=== PATIENT | female | born 1960 | race Caucasian/White ===

== ENCOUNTER 2018-12-20 14:35 | Emergency (ER) | payer MEDICARE ==
[~2018-12-20] VITALS: Ht 165.1 cm; Wt 61.7 kg
--- OUTSIDE RECORDS SUMMARY | ~2018-12-20 | XMS | Clinical Summary ---
Demographics + + + | Address | [address] | | | [place] [address] | + + + | Home Phone | | + + + | Preferred Language | Unknown | + + + | Marital Status | | + + + | Mandaeism Affiliation | 1073 | + + + | Race | Unknown | + + + | Ethnic Group | Unknown | + + + Author + + + | Author | [facility] | | | and [place] | + + + | Organization | [facility] | | | and [place] | + + + | Address | Unknown | + + + | Phone | Unavailable | + + + Support + + +---------+ + | Name | Relationship | Address | Phone | + + +---------+ + | RAFIA JORGENSEN ECON | Unknown | | + + +---------+ + Care Team Providers + +------+ + | Care Video Game Creator Name | Role | Phone | + +------+ + PCP | Unavailable | + +------+ + Allergies Not on File Medications Not on file Active Problems Not on file Social History + +-------+ +--------+------+ | Tobacco Use | Types | Packs/Day | Years | Date | | | | | Used | | + +-------+ +--------+------+ | Never Assessed | | | | | + +-------+ +--------+------+ + + + | Sex Assigned at | Date Recorded | | | | + + + | Not on file | | + + + + + + + | Job Start Date | Occupation | Industry | + + + + | Not on file | Not on file | Not on file | + + + + + + + + | Travel History | Travel Start | Travel End | + + + + + + | No recent travel history available. | + + Last Filed Vital Signs Not on file Plan of Treatment + + + + + | Health Maintenance | Due Date | Last Done | Comments | + + + + + | Vaccine: | | | | | Dtap/Tdap/Td (1 - | 8 | | | | Tdap) | | | | + + + + + | Cervical Cancer | | | | | Screening (Pap) | 9 | | | + + + + + | Vaccine: Zoster (1 | | | | | of 2) | 9 | | | + + + + + | Breast Cancer | | | | | Screening | 4 | | | + + + + + | Vaccine: Influenza | | | | | (#1) | 9 | | | + + + + + Results Not on filefrom Last 3 Months"
--- OUTSIDE RECORDS SUMMARY | ~2018-12-20 | XMS | Clinical Summary ---
Demographics + + + | Address | [address] | | | [place] [address] | + + + | Home Phone | | + + + | Preferred Language | Unknown | + + + | Marital Status | | + + + | Amish Affiliation | 1073 | + + + | Race | Unknown | + + + | Ethnic Group | Unknown | + + + Author + + + | Author | [facility] | | | and [place] | + + + | Organization | [facility] | | | and [place] [...] Team Providers + +------+ + | Care Laborer Ammunition Assembly Name | Role | Phone | + [...]
[~2018-12-20 14:35] MED LIST: CEPHALEXIN500 MG PO; KEFLEX500 MG PO; MACROBID 100 M100 MG PO; NORCO 5-325 TA1 EACH PO
--- OUTSIDE RECORDS SUMMARY | 2018-12-20 14:38 | XMS ---
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 Sammi has no Care Guidelines for this patient. Farooq VISIT COUNT (12 MO.) 2 [facility] TOTAL 2 NOTE: Visits indicate total known visits. ED/UCC VISIT TRACKING (12 MO.) 12/20/2018 14:35 [facility] [place] TYPE: Emergency COMPLAINT: - TOOTH/JAW PAIN 11/18/2018 00:[address] [facility] [place] TYPE: Emergency COMPLAINT: - DENTAL PROBLEM DIAGNOSES: - Nicotine dependence, unspecified, uncomplicated - Other specified disorders of teeth and supporting structures INPATIENT VISIT TRACKING (12 MO.) No inpatient visits to display in this time frame [id number]
[2018-12-20] MEDS ORDERED: PENICILLIN V P500 MG PO (15:18)
== END 2018-12-20 15:27 | disposition home or self-care (01) ==
LOC: ED 14:35
DX: K08.89 Other specified disorders of teeth and supporting structures (principal); F17.200 Nicotine dependence, unspecified, uncomplicated
CPT/HCPCS: 99282

== ENCOUNTER 2018-12-22 11:50 | Emergency (ER) | payer MEDICARE ==
[~2018-12-22] VITALS: Ht 165.1 cm; Wt 61.2 kg
--- OUTSIDE RECORDS SUMMARY | ~2018-12-22 | XMS | Clinical Summary ---
Demographics + + + | Address | [address] | | | [place] [address] | + + + | Home Phone | | + + + | Preferred Language | Unknown | + + + | Marital Status | | + + + | Jain Affiliation | 1073 | + + + | Race | Unknown | + + + | Ethnic Group | Unknown | + + + Author + + + | Author | [facility] | | | and [place] | + + + | Organization | [facility] | | | and [place] | [...] Team Providers + +------+ + | Care Production Line Assembler Name | Role | Phone | + [...]
--- OUTSIDE RECORDS SUMMARY | ~2018-12-22 | XMS | Clinical Summary ---
Demographics + + + | Address | [address] | | | [place] [address] | + + + | Home Phone | | + + + | Preferred Language | Unknown | + + + | Marital Status | | + + + | Oriental Orthodox Affiliation | 1073 | + + + | Race | Unknown | + + + | Ethnic Group | Unknown | + + + Author + + + | Author | [facility] | | | and [place] | + + + | Organization | [facility] | | | and [place] [...] Team Providers + +------+ + | Care Wind Projects Supervisor Name | Role | Phone | + [...]
[~2018-12-22 11:50] MED LIST changes: +PENICILLIN V P500 MG PO
--- OUTSIDE RECORDS SUMMARY | 2018-12-22 11:52 | XMS ---
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 Sammi has no Care Guidelines for this patient. [facility] NOTE: Visits indicate total known visits. ED/C VISIT TRACKING (12 MO.) 12/22/2018 11:[facility] [place] TYPE: Emergency COMPLAINT: - ALLERGIC REACTION 12/20/2018 14:35 [facility] [place] TYPE: Emergency COMPLAINT: - TOOTH/JAW PAIN 11/18/2018 00:51 [facility] [place] TYPE: Emergency COMPLAINT: - DENTAL PROBLEM DIAGNOSES: - Nicotine dependence, unspecified, uncomplicated - Other specified disorders of teeth and supporting structures INPATIENT VISIT TRACKING (12 MO.) No inpatient visits to display in this time frame [id number]
[2018-12-22] MEDS ORDERED: CLEOCIN HCL300 MG PO (13:21)
== END 2018-12-22 13:44 | disposition home or self-care (01) ==
LOC: ED 11:50
DX: K04.7 Periapical abscess without sinus (principal); F17.200 Nicotine dependence, unspecified, uncomplicated; Z88.0 Allergy status to penicillin
CPT/HCPCS: 99282; Q0163

== ENCOUNTER 2020-11-16 11:07 | Emergency (ER) | payer MEDICARE ==
[~2020-11-16] VITALS: Ht 165.1 cm; Wt 54.4 kg
[~2020-11-16 11:07] MED LIST changes: +CLEOCIN HCL300 MG PO
--- OUTSIDE RECORDS SUMMARY | 2020-11-16 11:16 | XMS ---
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 Sammi has no Care Guidelines for this patient. Farooq VISIT COUNT (12 MO.) 1 DEB [facility] TOTAL 1 NOTE: Visits indicate total known visits. ED/UCC VISIT TRACKING (12 MO.) 11/16/2020 11:08 [facility] [place] TYPE: Emergency COMPLAINT: - PAIN, ITCH THROUGHOUT BODY INPATIENT VISIT TRACKING (12 MO.) No inpatient visits to display in this time frame [id number]
[2020-11-16] MEDS ORDERED: CLOTRIMAZOLE10 GM MISC (11:28)
== END 2020-11-16 13:05 | disposition home or self-care (01) ==
LOC: ED 11:07
DX: F64.9 Gender identity disorder, unspecified (principal); F17.200 Nicotine dependence, unspecified, uncomplicated; Z88.0 Allergy status to penicillin; Z79.899 Other long term (current) drug therapy
CPT/HCPCS: 99282